=== PATIENT | female | born 1995 | race Caucasian/White ===

== ENCOUNTER 2018-08-22 17:14 | Inpatient (IN) | payer BC, OTHER ==
[~2018-08-22] VITALS: Ht 162.6 cm; Wt 70.4 kg
[2018-08-22 17:22] VITALS: BP 121/69
[2018-08-22] MEDS ORDERED: OXYTOCIN 30U/ 0.9% NaCL 500ML 500 ML IV ONE (18:27)
[2018-08-22] MEDS ORDERED: NEWBORN KIT ONE ×2 (18:27)
[2018-08-22] MEDS ORDERED: MISOPROSTOL 200 MCG TABLET ONE (18:28)
[2018-08-22] MEDS ORDERED: OXYTOCIN 30U/ 0.9% NaCL 500ML 500 ML ONE (18:28)
[2018-08-22] MEDS ORDERED: LIDOCAINE 1%, 20ML ONE (18:28)
[2018-08-22] MEDS ORDERED: D5%-LACTATED RINGERS 1,000 ML IV SCH (18:30)
[2018-08-22] MEDS ORDERED: SODIUM CITRATE/CITRIC ACID 30 ML UDC PO PRN (18:30)
[2018-08-22] MEDS ORDERED: FENTANYL PF 100 MCG/2ML IV PRN (18:30)
[2018-08-22] MEDS ORDERED: ONDANSETRON 2MG/ML, 2ML IVPush PRN (18:30)
[2018-08-22] MEDS: LACTATED RINGERS 1,000 ML IV SCH (18:39)
[2018-08-22 18:49] LABS: BASOPHILS # (AUTO) 0.01 x10^3/uL (0-0.1); BASOPHILS % (AUTO) 0 % (0-1); EOSINOPHILS # (AUTO) 0.12 x10^3/uL (0-0.4); EOSINOPHILS % (AUTO) 1 % (1-7); LYMPHOCYTES # (AUTO) 1.19 x10^3/uL (1-3.4); LYMPHOCYTES % (AUTO) 12 % (22-44); MD NO; MEAN CORPUSCULAR HEMOGLOBIN 32.9 pg (27.0-34.8); MEAN CORPUSCULAR HGB CONC 34.7 g/dL (32.4-35.8); MEAN CORPUSCULAR VOLUME 94.7 fL (80-100); MEAN PLATELET VOLUME 10.1 fL (7.4-10.4); MONOCYTES % (AUTO) 9 % (2-9); NEUTROPHILS # (AUTO) 7.88 x10^3/uL (1.8-6.8); NEUTROPHILS % (AUTO) 78 % (42-75); PLATELET COUNT 136 x10^3/uL (130-400); RED CELL DISTRIBUTION WIDTH 14.3 % (9.6-15.2)
[2018-08-22] MEDS ORDERED: PLEASE ENTER ALLERGIES MC SCH (19:00)
[2018-08-22 19:15] VITALS: BP 111/75
[2018-08-23] MEDS: LACTATED RINGERS 1,000 ML IV SCH ×4 (01:11→23:22)
[2018-08-23] MEDS ORDERED: OXYTOCIN 30U/ 0.9% NaCL 500ML 500 ML IV PRN (01:15)
[2018-08-23] MEDS ORDERED: FENTANYL PF 100 MCG/2ML ONE ×2 (04:52→06:36)
[2018-08-23] MEDS: FENTANYL PF 100 MCG/2ML IVPush PRN ×2 (04:55→06:39)
[2018-08-23] MEDS ORDERED: FENTANYL/BUPIV./NS/PF 250 ML EPIDCONT ONE (06:46)
[2018-08-23] MEDS ORDERED: FENTANYL/BUPIV./NS/PF 250 ML EPIDCONT SCH (07:29)
[2018-08-23] MEDS ORDERED: NALOXONE 0.4 MG/ML, 1ML IVPush PRN (07:30)
[2018-08-23] MEDS ORDERED: EPHEDRINE 50 MG/ML, 1ML IVPush PRN (07:30)
[2018-08-23] MEDS ORDERED: LACTATED RINGERS 1,000 ML IVBOLUS PRN (07:30)
[2018-08-23] MEDS ORDERED: ONDANSETRON 2MG/ML, 2ML ONE (07:48)
[2018-08-23] MEDS ORDERED: OXYcodone/APAP 5/325MG TABLET PO PRN (16:30)
[2018-08-23] MEDS ORDERED: METHYLERGONOVINE 0.2 MG/ML IM PRN (16:30)
[2018-08-23] MEDS ORDERED: ONDANSETRON 2MG/ML, 2ML IV PRN (16:30)
[2018-08-23] MEDS ORDERED: MISOPROSTOL 200 MCG TABLET PO PRN (16:30)
[2018-08-23] MEDS ORDERED: OXYTOCIN 30U/ 0.9% NaCL 500ML 500 ML ONE (17:11)
[2018-08-23] MEDS: OXYTOCIN 30U/ 0.9% NaCL 500ML 500 ML IV SCH (17:41)
[2018-08-23] MEDS ORDERED: IBUPROFEN 600 MG TABLET ONE (17:50)
[2018-08-23] MEDS ORDERED: OXYcodone/APAP 5/325MG TABLET ONE (17:50)
[2018-08-23] MEDS: IBUPROFEN 600 MG TABLET PO PRN ×2 (17:51→23:53)
[2018-08-23] MEDS: OXYcodone/APAP 5/325MG TABLET PO PRN (17:52)
[2018-08-23 18:20] VITALS: BP 118/76
[2018-08-23 20:00] VITALS: BP 106/65
[2018-08-23] MEDS: DOCUSATE 100 MG CAPSULE PO PRN (23:53)
[2018-08-24 00:08] VITALS: BP 96/60
[2018-08-24 01:00] LABS: BASOPHILS # (AUTO) 0.04 x10^3/uL (0-0.1); BASOPHILS % (AUTO) 0 % (0-1); EOSINOPHILS % (AUTO) 2 % (1-7); LYMPHOCYTES # (AUTO) 1.44 x10^3/uL (1-3.4); LYMPHOCYTES % (AUTO) 11 % (22-44); MD NO; MEAN CORPUSCULAR HEMOGLOBIN 33.1 pg (27.0-34.8); MEAN CORPUSCULAR HGB CONC 34.9 g/dL (32.4-35.8); MEAN CORPUSCULAR VOLUME 94.8 fL (80-100); MEAN PLATELET VOLUME 10.1 fL (7.4-10.4); MONOCYTES # (AUTO) 0.95 x10^3/uL (0.2-0.8); MONOCYTES % (AUTO) 7 % (2-9); NEUTROPHILS # (AUTO) 10.11 x10^3/uL (1.8-6.8); NEUTROPHILS % (AUTO) 79 % (42-75); PLATELET COUNT 107 x10^3/uL (130-400); RED BLOOD COUNT 3.21 x10^6/uL (3.82-5.3); RED CELL DISTRIBUTION WIDTH 14.5 % (9.6-15.2)
[2018-08-24] MEDS: OXYTOCIN 30U/ 0.9% NaCL 500ML 500 ML IV SCH ×2 (01:05→12:20)
[2018-08-24] MEDS: LACTATED RINGERS 1,000 ML IV SCH (01:05)
[2018-08-24 03:45] VITALS: BP 104/65
[2018-08-24] MEDS: OXYcodone/APAP 5/325MG TABLET PO PRN ×2 (03:48→09:32)
[2018-08-24] MEDS: IBUPROFEN 600 MG TABLET PO PRN ×2 (05:56→12:11)
[2018-08-24 08:30] VITALS: BP 98/62
[2018-08-24] MEDS ORDERED: PRENATAL VIT/IRON/FA 1 EACH TABLET PO SCH (09:00)
[2018-08-24] MEDS: DOCUSATE 100 MG CAPSULE PO PRN (09:32)
[2018-08-24] MEDS ORDERED: OXYC-302 PO (10:41)
[2018-08-24] MEDS ORDERED: IBUP-1222 PO (10:41)
[2018-08-24] MEDS ORDERED: DOCU-131 PO (10:42)
[2018-08-24 12:30] VITALS: BP 110/72
== END 2018-08-24 14:45 | disposition home or self-care (01) | DRG 807 ==
LOC: LDOP 17:14 → LDIP 18:31 → 2NW 08-23 18:07
PROVIDERS: ADMIT Obstetrics & Gynecology; ATTEND Obstetrics & Gynecology
PROC: 0KQM0ZZ Repair Perineum Muscle, Open Approach (ICD-10-PCS; principal; 2018-08-23)
PROC: 10E0XZZ Delivery of Products of Conception, External Approach (ICD-10-PCS; 2018-08-23)
PROC: 3E033VJ Introduction of Other Hormone into Peripheral Vein, Percutaneous Approach (ICD-10-PCS; 2018-08-23)
PROC: 3E0R3BZ Introduction of Anesthetic Agent into Spinal Canal, Percutaneous Approach (ICD-10-PCS; 2018-08-23)
PROC: 00HU33Z Insertion of Infusion Device into Spinal Canal, Percutaneous Approach (ICD-10-PCS; 2018-08-23)
DX: O76 Abnormality in fetal heart rate and rhythm complicating labor and delivery (principal); Z37.0 Single live birth; O43.193 Other malformation of placenta, third trimester; O77.0 Labor and delivery complicated by meconium in amniotic fluid; O70.1 Second degree perineal laceration during delivery; O99.89 Other specified diseases and conditions complicating pregnancy, childbirth and the puerperium; R19.7 Diarrhea, unspecified; Z3A.39 39 weeks gestation of pregnancy
CPT/HCPCS: 36415; 85025; 86850; 86900; G0378; J2405; J3010; J2590; J7120

== ENCOUNTER 2019-12-07 10:52 | Inpatient (IN) | payer OTHER ==
[~2019-12-07] VITALS: Ht 162.6 cm; Wt 76.3 kg
[~2019-12-07 10:52] MED LIST: DOCU-131 PO; IBUP-1222 PO; OXYC-302 PO
[2019-12-11] MEDS ORDERED: OXYTOCIN 30U/ 0.9% NaCL 500ML 500 ML IV PRN (12:06)
[2019-12-11] MEDS ORDERED: D5%-LACTATED RINGERS 1,000 ML IV SCH (12:06)
[2019-12-11] MEDS ORDERED: OXYTOCIN 30U/ 0.9% NaCL 500ML 500 ML IV ONE (12:06)
[2019-12-11 12:27] LABS: BASOPHILS # (AUTO) 0.04 x10^3/uL (0-0.1); BASOPHILS % (AUTO) 0 % (0-1); EOSINOPHILS # (AUTO) 0.14 x10^3/uL (0-0.4); EOSINOPHILS % (AUTO) 1 % (1-7); LYMPHOCYTES # (AUTO) 1.51 x10^3/uL (1-3.4); LYMPHOCYTES % (AUTO) 14 % (22-44); MD NO; MEAN CORPUSCULAR HEMOGLOBIN 29.4 pg (27.0-34.8); MEAN CORPUSCULAR HGB CONC 32.8 g/dL (32.4-35.8); MEAN CORPUSCULAR VOLUME 89.6 fL (80-100); MEAN PLATELET VOLUME 9.7 fL (7.4-10.4); MONOCYTES % (AUTO) 5 % (2-9); NEUTROPHILS # (AUTO) 8.91 x10^3/uL (1.8-6.8); NEUTROPHILS % (AUTO) 80 % (42-75); PLATELET COUNT 185 x10^3/uL (130-400); RED BLOOD COUNT 3.74 x10^6/uL (3.82-5.3); RED CELL DISTRIBUTION WIDTH 14.5 % (9.6-15.2)
[2019-12-11] MEDS ORDERED: FENTANYL PF 100 MCG/2ML IVPush PRN (12:30)
[2019-12-11] MEDS ORDERED: TERBUTALINE 1 MG/ML, 1ML IVPush PRN (12:30)
[2019-12-11] MEDS ORDERED: ONDANSETRON 2MG/ML, 2ML IVPush PRN ×2 (12:30→21:30)
[2019-12-11] MEDS ORDERED: SODIUM CITRATE/CITRIC ACID 30 ML UDC PO PRN (12:30)
[2019-12-11] MEDS ORDERED: CALCIUM CARBONATE 500 MG TAB.CHEW PO PRN (12:30)
[2019-12-11] MEDS ORDERED: METOCLOPRAMIDE 5 MG/ML, 2ML IVPush PRN (12:30)
[2019-12-11] MEDS ORDERED: FENTANYL PF 100 MCG/2ML IV PRN (12:30)
[2019-12-11] MEDS ORDERED: TERBUTALINE 1 MG/ML, 1ML SQ PRN (12:30)
[2019-12-11] MEDS: LACTATED RINGERS 1,000 ML IV SCH ×3 (12:31→18:26)
[2019-12-11] MEDS ORDERED: NEWBORN KIT ONE (12:35)
[2019-12-11] MEDS ORDERED: OXYTOCIN 30U/ 0.9% NaCL 500ML 500 ML ONE (12:35)
[2019-12-11] MEDS ORDERED: FENTANYL PF 100 MCG/2ML ONE (17:16)
[2019-12-11] MEDS ORDERED: FENTANYL/BUPIV./NS/PF 250 ML EPIDCONT ONE (17:29)
[2019-12-11] MEDS ORDERED: BUPIVACAINE 0.25% ONE (18:13)
[2019-12-11] MEDS: OXYTOCIN 30U/ 0.9% NaCL 500ML 500 ML IV SCH (20:28)
[2019-12-11] MEDS ORDERED: OXYcodone/APAP 5/325MG TABLET PO PRN ×2 (20:30)
[2019-12-11] MEDS ORDERED: DOCUSATE 100 MG CAPSULE PO PRN (20:30)
[2019-12-11] MEDS ORDERED: DIPH,PERTUSS(ACELL),TET VAC/PF NC IM-VACC PRN (20:30)
[2019-12-11] MEDS ORDERED: SIMETHICONE 80 MG CHEW TAB PO PRN (20:30)
[2019-12-11] MEDS ORDERED: RHOGAM FROM BLOOD BANK 1 NOTE EA IM/IV ONE (20:30)
[2019-12-11] MEDS ORDERED: ONDANSETRON 2MG/ML, 2ML IV PRN (20:30)
[2019-12-11] MEDS ORDERED: MISOPROSTOL 200 MCG TABLET PR PRN (20:30)
[2019-12-11] MEDS ORDERED: ACETAMINOPHEN 325 MG TABLET PO PRN ×2 (20:30)
[2019-12-11] MEDS ORDERED: MAGNESIUM HYDROXIDE 8%, 30ML UDC PO PRN (20:30)
[2019-12-11] MEDS ORDERED: FENTANYL/BUPIV./NS/PF 250 ML EPIDCONT SCH (21:27)
[2019-12-11] MEDS ORDERED: LACTATED RINGERS 1,000 ML IV SCH (21:27)
[2019-12-11] MEDS ORDERED: EPHEDRINE 50 MG/ML, 1ML IVPush PRN (21:30)
[2019-12-11] MEDS ORDERED: DIPHENHYDRAMINE 50 MG/ML, 1ML IVPush PRN (21:30)
[2019-12-11] MEDS ORDERED: LACTATED RINGERS 1,000 ML IVBOLUS PRN (21:30)
[2019-12-11] MEDS ORDERED: NALOXONE 0.4 MG/ML, 1ML IVPush PRN (21:30)
[2019-12-11 23:00] VITALS: BP 104/67
[2019-12-12] MEDS: IBUPROFEN 600 MG TABLET PO PRN ×3 (02:02→17:54)
[2019-12-12 03:30] VITALS: BP 112/82
[2019-12-12 04:12] LABS: BASOPHILS # (AUTO) 0.03 x10^3/uL (0-0.1); BASOPHILS % (AUTO) 0 % (0-1); EOSINOPHILS # (AUTO) 0.14 x10^3/uL (0-0.4); EOSINOPHILS % (AUTO) 1 % (1-7); LYMPHOCYTES % (AUTO) 12 % (22-44); MD NO; MEAN CORPUSCULAR HEMOGLOBIN 29.6 pg (27.0-34.8); MEAN CORPUSCULAR HGB CONC 32.9 g/dL (32.4-35.8); MEAN CORPUSCULAR VOLUME 89.9 fL (80-100); MEAN PLATELET VOLUME 9.4 fL (7.4-10.4); MONOCYTES # (AUTO) 1.01 x10^3/uL (0.2-0.8); MONOCYTES % (AUTO) 7 % (2-9); NEUTROPHILS # (AUTO) 10.91 x10^3/uL (1.8-6.8); NEUTROPHILS % (AUTO) 80 % (42-75); PLATELET COUNT 150 x10^3/uL (130-400); RED BLOOD COUNT 3.21 x10^6/uL (3.82-5.3); RED CELL DISTRIBUTION WIDTH 14.3 % (9.6-15.2)
[2019-12-12] MEDS: OXYTOCIN 30U/ 0.9% NaCL 500ML 500 ML IV SCH ×2 (06:28→16:28)
[2019-12-12 08:00] VITALS: BP 107/73
[2019-12-12] MEDS ORDERED: PRENATAL VIT/IRON/FA 1 EACH TABLET PO SCH (09:00)
[2019-12-12 12:00] VITALS: BP 112/72
[2019-12-12 16:28] VITALS: BP 118/52
[2019-12-12 19:25] VITALS: BP 105/66
[2019-12-12] MEDS ORDERED: IBUP-1222 PO (20:20)
== END 2019-12-12 21:55 | disposition home or self-care (01) | DRG 807 ==
LOC: LDIP 12-11 11:59 → 2NW 12-11 23:00
PROVIDERS: ADMIT Student in an Organized Health Care Education/Training Program; ATTEND Student in an Organized Health Care Education/Training Program
PROC: 10E0XZZ Delivery of Products of Conception, External Approach (ICD-10-PCS; principal; 2019-12-11)
PROC: 0KQM0ZZ Repair Perineum Muscle, Open Approach (ICD-10-PCS; 2019-12-11)
PROC: 3E033VJ Introduction of Other Hormone into Peripheral Vein, Percutaneous Approach (ICD-10-PCS; 2019-12-11)
PROC: 3E0R3BZ Introduction of Anesthetic Agent into Spinal Canal, Percutaneous Approach (ICD-10-PCS; 2019-12-11)
PROC: 00HU33Z Insertion of Infusion Device into Spinal Canal, Percutaneous Approach (ICD-10-PCS; 2019-12-11)
DX: O70.1 Second degree perineal laceration during delivery (principal); Z37.0 Single live birth; Z3A.40 40 weeks gestation of pregnancy; Z83.3 Family history of diabetes mellitus
CPT/HCPCS: 36415; 85025; 86592; 86850; 86900; 87635; G0378; J3010; J2590; J7120